=== PATIENT | female | born 1945 | race Caucasian/White ===

== ENCOUNTER 2023-10-27 20:43 | Emergency (ER) | payer OTHER, SELFPAY ==
[2023-10-27 20:48] VITALS: BP 160/68
[2023-10-27 21:01] LABS: % Basophils 0.5 % (0-2); % Eosinophils 0.7 % (0-6); % Immature Granulocytes 0.2 % (0-0.5); % Lymphocytes 20.8 % (20.5-51.1); % Neutrophils 62.8 % (42.2-75.2); Absolute Lymphocytes 1.2 10^3/uL (1.2-3.4); Absolute Monocytes 0.9 10^3/uL (0.1-0.6); Absolute Neutrophils 3.7 10^3/uL (1.4-6.5); Hematocrit 38.1 % (37.0-47.0); Mean Corp Hgb Conc. 34.1 g/dL (33.0-37.0); Mean Corpuscular Hgb 28.1 pg (27.0-31.0); Mean Corpuscular Volume 82.5 fL (81.0-99.0); Mean Platelet Volume 9.5 fL (7.4-10.4); Nucleated Red Blood Cells % 0 %; Platelet Count 284 10^3/uL (130-400); Red Blood Cell Count 4.62 10^6/uL (4.20-5.40); Red Cell Dist. Width 13.2 % (11.5-14.5); White Blood Cell Count 5.8 10^3/uL (4.8-10.8)
[2023-10-27 21:16] LABS: ALT (SGPT) 20 U/L (0-35); AST (SGOT) 29 U/L (14-36); Albumin 4.3 g/dl (3.5-5.0); Alkaline Phosphatase 64 U/L (38-126); Blood Urea Nitrogen 22 mg/dl (7-17); Calcium 9.3 mg/dl (8.4-10.2); Carbon Dioxide 25 mmol/L (22-30); Chloride 99 mmol/L (98-107); Glucose 126 mg/dl (70-99); Potassium 3.6 mmol/L (3.5-5.1); Sodium 137 mmol/L (135-145); Total Bilirubin 0.5 mg/dl (0.2-1.3); Total Protein 7.3 g/dl (6.3-8.2); eGFR > 60.00
[2023-10-28] MEDS: CARAFATE SUSPENSION 1 GM PO (00:44)
--- NOTE | 2023-10-28 00:47 | ED.GENMED ---
History of Present Illness
General
Chief Complaint: Abdominal Symptoms
Source: patient
Time Seen by Provider: 10/28/23 00:25
Nursing documentation reviewed up to this point in time: agreed with
Travel History
Have you had any contact with someone who has COVID-19?: No
Do you have any symptoms of coronavirus? Fever > 100 degrees, chills, cough, shortness of breath, sore throat, loss of taste or smell, muscle aches, or headache?: No
History of Present Illness
History of Present Illness:
This a pleasant 78-year-old female who presents with indigestion and nonbloody diarrhea. She states that is been happening since . She denies fever, chills, nausea or vomiting. She does state that she is able to drink. Patient reports no
chest pain or shortness of breath. Reports no other symptoms.
Past History
Past History
ED Past Medical History: HTN, Hypercholesterolemia and Other (barrets, dvt)
Social History
Tobacco: Non-smoker
Alcohol: None
Drug: None
Personal:
Living: with family
Review of Systems
Review of Systems
Allergies reviewed?: Yes
All Other Systems: ROS reviewed and negative except as documented in HPI and ROS
Constitutional: Reports no symptoms
EENT: Reports no symptoms
Respiratory: Reports no symptoms
Cardiac: Reports no symptoms
ABD/GI: Reports diarrhea and other (Reflux)
: Reports no symptoms
Musculoskeletal: Reports no symptoms
Skin: Reports no symptoms
Neurological: Reports no symptoms
Endocrine: Reports no symptoms
Hematologic/Lymphatic: Reports no symptoms
Psychiatric: Reports no symptoms
Phy Exam
Physical Exam
Physical Exam:
Physical Exam
Vital signs and allergy list reviewed and agreed with.
GENERAL: Alert , in no apparent distress
EYE: pupils equal, EOMI, anicteric
NECK: Supple, no significant adenopathy. No masses. Trachea midline
ENT: Oropharynx is clear, mmm.
CARDIAC: Regular rate and rhythm . No M/R/G
LUNGS: Clear breath sounds bilaterally, no acute respiratory distress, no wheezes/rales/rhonchi
ABDOMEN: Soft, without focal tenderness, no r/g, no cvat. Normal BSx4q
NEUROLOGICAL: Alert and oriented, no focal neuro deficits
SKIN: Warm and dry, skin intact.
MUSCULOSKELETAL: No edema, well perfused. Moves all 4 extremities
PSYCH: Normal and appropriate interaction.
Course
Orders/Labs/Results
Orders:
Orders
10/27/23 20:51
Electrocardiogram (*1) Urgent
Reason for Study: Abdominal Pain
EKG- Treatment ONCE
10/27/23 20:55
CMP [Comprehensive Metabolic Panel] Urgent
Complete Blood Count/With Diff Urgent
10/28/23 00:42
Encourage PO Hydration-Treatme ONCE
Sucralfate Suspension [Carafate Suspension] 1 gm PO NOW STA
Abnormal Lab Results
10/27/23
20:55
Absolute Monos (auto) 0.9 H 10^3/uL
(0.1-0.6)
Monocytes % 15.0 H %
(1.7-9.3)
BUN 22 H mg/dl
(7-17)
Glucose 126 H mg/dl
(70-99)
10/27/23 20:55
10/27/23 20:55
Vital Signs
Initial and Last Documented VS:
Initial Vital Signs
Temp Pulse Resp BP Pulse Ox
98.4 F 80 18 160/68 98
10/27/23 20:48 10/27/23 20:48 10/27/23 20:48 10/27/23 20:48 10/27/23 20:48
Last Documented Vital Signs
Temp Pulse Resp BP Pulse Ox
98.4 F 80 18 160/68 98
10/27/23 20:48 10/27/23 20:48 10/27/23 20:48 10/27/23 20:48 10/27/23 20:48
MDM/Problems Addressed
Differential Diagnosis Includes:
78-year-old female with diarrhea and reflux. She has taken Maalox and Pepto-Bismol with great relief. She is able to tolerate liquids.
MDM/Problems Addressed:
Differential includes reflux, viral syndrome, enteritis
Chronic conditions affecting care:
Hypertension, hyperlipidemia, GERD, DVT
Chronic conditions affecting care: HTN
*Pulse Oximetry
Patient hypoxic: no
*EKG
Interpreted by ED Provider?: Yes
EKG Intrepretation Date: 10/28/23
Interpretation: normal
Comparison EKG: changes noted (PACs are now present)
Heart Rate: 69
Rate: normal
Rhythm: sinus and PAC's
[place]: normal axis
Interval: normal interval
QRS Pattern: normal QRS
Ischemia: no ischemia
*Critical Care Note
Total Time (30-74mins, 75-104mins- exclusive of procedures): Not Applicable
Patient Management
Social determinants of health affecting care: Living situation (Lives with ) and Strong social support
Update Note
Update Note:
10/28/2023 0051 AM: Patient refused further IV or blood stick for troponin and IV hydration. She does not feel that this is her heart and does not want any more testing. She is drinking liquids satisfactorily in the ER. She denies any chest pain.
However would prefer to have cardiac enzymes, patient is okay with being discharged without further testing.
ED Attending Note
-
Portions of this chart may have been created with voice recognition software.� Occasional wrong word or��sound alike� substitutions may have occurred due to the inherent limitations of voice recognition software.
Discharge Plan
Departure
Patient Disposition: Home (Routine Discharge)
Date of Disposition: 10/28/23
Time of Disposition: 00:53
Patient with high blood pressure during this ER visit?: Yes
Condition: Good
Discharge Problem:
Diarrhea, Gastroesophageal reflux disease
Instructions: Diarrhea in adolescents and adults, Clear Liquid Diet
Prescriptions:
New
loperamide [Imodium A-D] 2 mg capsule
2 mg PO Q6H PRN (Reason: loose stool) Qty: 10 0RF
No Action
pantoprazole 40 MG tablet,delayed release (DR/EC)
40 mg PO DAILY
lisinopril [Prinivil] 10 MG tablet
10 mg PO DAILY
rosuvastatin 5 MG tablet
5 mg PO Daily
apixaban [Eliquis DVT-PE Treat 30D Start] 5 MG tablets,dose pack
5 - 10 mg PO DIRECTED Qty: 1 0RF
Referrals:
[facility] [Outside]
[facility] [Outside]
UNKNOWN - PT DOES,NOT KNOW [Family Provider] -
Activity Restrictions/Additional Instructions:
It was a pleasure meeting you and taking part in your care. We hope for your continued healing and wellness.
Please read discharge instructions in their entirety. However, they are for general education and may not describe your exact diagnosis at discharge. Information on your ER visit and medical conditions were discussed with you along with appropriate
follow up information...
If indicated, please take your medications as instructed and indicated on discharge paperwork.
Please schedule a follow up appointment as directed. Call to schedule an appointment
Please return to the emergency department with ANY change in, persisting, or worsening of symptoms. If any of your symptoms do not improve, or persist, or become more severe within 6-12 hours, please return to the emergency department for further
care.
Please return to the emergency department if you develop a headache, neck pain/stiffness, fever greater than 100.4F, chest pain, shortness of breath, persistent nausea, vomiting, slurred speech, difficulty walking, numbness/tingling, weakness, signs
of infection or any other symptoms that are worrisome to you.
If you have any questions or concerns please do not hesitate to call the Hospital at or E-mail me directly at [email or web address]
Interventions
Interventions:
*Risk Screen - Suicide Last Done: 10/27/23 20:48
*General Assessment Last Done: 10/28/23 00:46
*Neglect/Abuse Screening Last Done: 10/27/23 20:48
*ED COVID-19 Vaccine History Last Done: 10/28/23 00:46
*Nursing Disposition Last Done: 10/28/23 01:04
CY-Fhgmzu-Ygyrsruurx Assessment Last Done: 10/28/23 00:46
Discharge Date and Time
Discharge Date/Time: 10/28/23 01:05
== END 2023-10-28 01:05 | disposition home or self-care (01) ==
LOC: EMR 20:43
PROVIDERS: Emergency Medicine; EMERGENCY PHYSICIAN Student in an Organized Health Care Education/Training Program
DX: K21.9 Gastro-esophageal reflux disease without esophagitis (principal); R19.7 Diarrhea, unspecified; I10 Essential (primary) hypertension; E78.00 Pure hypercholesterolemia, unspecified; K22.70 Barrett's esophagus without dysplasia; Z86.718 Personal history of other venous thrombosis and embolism; Z85.820 Personal history of malignant melanoma of skin; Z88.1 Allergy status to other antibiotic agents
CPT/HCPCS: 99283; 80053; 85025; 93005

== ENCOUNTER → 2023-11-27 15:20 | Outpatient (REF) | payer OTHER, SELFPAY | LOC: RAD 15:20 | PROVIDERS: ATTENDING PHYSICIAN Student in an Organized Health Care Education/Training Program | DX: R19.7 Diarrhea, unspecified (principal); Z09 Encounter for follow-up examination after completed treatment for conditions other than malignant neoplasm; R10.31 Right lower quadrant pain; R73.9 Hyperglycemia, unspecified | CPT/HCPCS: 74177; Q9967 ==

== ENCOUNTER 2024-01-15 08:49 | Emergency (ER) | payer OTHER, SELFPAY ==
[2024-01-15 08:59] VITALS: BP 156/98
[2024-01-15] MEDS: MOTRIN 600 MG PO (12:28)
[2024-01-15] MEDS: CLEOCIN 450 MG PO (12:28)
[2024-01-15 12:29] LABS: % Basophils 0.8 % (0-2); % Eosinophils 0.7 % (0-6); % Immature Granulocytes 0.4 % (0-0.5); % Lymphocytes 19.1 % (20.5-51.1); % Monocytes 9.1 % (1.7-9.3); % Neutrophils 69.9 % (42.2-75.2); Absolute Basophils 0.1 10^3/uL (0-0.2); Absolute Eosinophils 0.1 10^3/uL (0-0.7); Absolute Lymphocytes 1.4 10^3/uL (1.2-3.4); Absolute Monocytes 0.7 10^3/uL (0.1-0.6); Absolute Neutrophils 5.2 10^3/uL (1.4-6.5); Hematocrit 35.7 % (37.0-47.0); Hemoglobin 11.6 g/dL (12.0-16.0); Mean Corp Hgb Conc. 32.5 g/dL (33.0-37.0); Mean Corpuscular Hgb 28.2 pg (27.0-31.0); Mean Corpuscular Volume 86.9 fL (81.0-99.0); Mean Platelet Volume 9.7 fL (7.4-10.4); Nucleated Red Blood Cells % 0 %; Platelet Count 249 10^3/uL (130-400); Red Blood Cell Count 4.11 10^6/uL (4.20-5.40); Red Cell Dist. Width 13.4 % (11.5-14.5); White Blood Cell Count 7.4 10^3/uL (4.8-10.8)
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
[2024-01-15 12:51] LABS: Lactic Acid 1.3 mmol/L (0.7-2.0)
[2024-01-15 12:53] LABS: ALT (SGPT) 17 U/L (0-35); AST (SGOT) 22 U/L (14-36); Albumin 4.2 g/dl (3.5-5.0); Alkaline Phosphatase 73 U/L (38-126); Blood Urea Nitrogen 17 mg/dl (7-17); Calcium 9.7 mg/dl (8.4-10.2); Carbon Dioxide 30 mmol/L (22-30); Chloride 102 mmol/L (98-107); Glucose 137 mg/dl (70-99); Potassium 4.3 mmol/L (3.5-5.1); Sodium 140 mmol/L (135-145); Total Bilirubin 0.5 mg/dl (0.2-1.3); Total Protein 7.4 g/dl (6.3-8.2); eGFR > 60.00
== END 2024-01-15 16:04 | disposition home or self-care (01) ==
LOC: EMR 08:49
PROVIDERS: Emergency Medicine; Physician Assistant; EMERGENCY PHYSICIAN Emergency Medicine; FAMILY PHYSICIAN Student in an Organized Health Care Education/Training Program
DX: I82.462 Acute embolism and thrombosis of left calf muscular vein (principal); L03.116 Cellulitis of left lower limb; S81.832A Puncture wound without foreign body, left lower leg, initial encounter; W27.1XXA Contact with garden tool, initial encounter; Y93.H2 Activity, gardening and landscaping; I10 Essential (primary) hypertension; E78.00 Pure hypercholesterolemia, unspecified; K22.70 Barrett's esophagus without dysplasia; Z85.828 Personal history of other malignant neoplasm of skin; Z86.718 Personal history of other venous thrombosis and embolism; Z88.1 Allergy status to other antibiotic agents; Z88.8 Allergy status to other drugs, medicaments and biological substances
CPT/HCPCS: 99284; 73610; 80053; 83605; 85025; 87040; 93971

== ENCOUNTER → 2024-01-22 10:49 | Outpatient (REF) | payer OTHER, SELFPAY | LOC: RAD 10:49 | PROVIDERS: ATTENDING PHYSICIAN Student in an Organized Health Care Education/Training Program | DX: I82.452 Acute embolism and thrombosis of left peroneal vein (principal) | CPT/HCPCS: 93971 ==

== ENCOUNTER 2024-01-22 12:08 | Emergency (ER) | payer OTHER, SELFPAY ==
[2024-01-22 12:10] VITALS: BP 163/79
--- NOTE | 2024-01-22 13:18 | ED.GENMED ---
History of Present Illness
General
Chief Complaint: Swelling
Time Seen by Provider: 01/22/24 13:04
Travel History
Have you had any contact with someone who has COVID-19?: No
Do you have any symptoms of coronavirus? Fever > 100 degrees, chills, cough, shortness of breath, sore throat, loss of taste or smell, muscle aches, or headache?: No
History of Present Illness
History of Present Illness:
78-year-old female presents to the emergency department for evaluation of a left lower extremity DVT. Seen this emergency department 1 week ago for left lower extremity cellulitis at which time a venous duplex of the left leg revealed a
nonocclusive thrombus in the left peroneal vein. After a lengthy discussion patient opted against anticoagulation but was ordered to obtain a repeat outpatient Doppler ultrasound within 1 to 2 weeks. This repeat ultrasound was today which showed
propagation of the clot to the left popliteal vein. She reports leg swelling is worsened. Has a history of a DVT many years ago however was not anticoagulated at that time
Past History
Past History
ED Past Medical History: HTN, Hypercholesterolemia and Other (barrets, dvt)
Social History
Tobacco: Non-smoker
Alcohol: None
Drug: None
Personal:
Living: with family
Review of Systems
Review of Systems
Allergies reviewed?: Yes
All Other Systems: ROS reviewed and negative except as documented in HPI and ROS
Phy Exam
Physical Exam
Physical Exam:
GEN: Well appearing, NAD, WDWN
HEENT: Oral mucosa moist, no scleral icterus
Cardiac: Regular rate
Lung: No respiratory distress, no tachypnea
MSK:Diffuse edema of the left lower extremity. There is mild erythema to the inferior anterior aspect centered around a superficial abrasion
Skin: Good color, no pallor or jaundice, no rashes
Neuro: AO x3, moves all extremities freely
Psych: Calm, cooperative
Scores
Heart Failure Risk
Heart Failure Risk Score: Not Applicable
Course
Vital Signs
Initial and Last Documented VS:
Initial Vital Signs
Temp Pulse Resp BP Pulse Ox
97.9 F 66 20 163/79 99
01/22/24 12:10 01/22/24 12:10 01/22/24 12:10 01/22/24 12:10 01/22/24 12:10
Last Documented Vital Signs
Temp Pulse Resp BP Pulse Ox
97.9 F 66 20 163/79 98
01/22/24 12:10 01/22/24 12:10 01/22/24 12:10 01/22/24 12:10 01/22/24 13:22
MDM/Problems Addressed
MDM/Problems Addressed:
Given propagation of the clot the patient will be started on anticoagulants. Mukesh roe provided, lengthy discussion regarding potential side effects and risks of taking anticoagulants.
*Critical Care Note
Total Time (30-74mins, 75-104mins- exclusive of procedures): Not Applicable
ED Attending Note
-
Portions of this chart may have been created with voice recognition software.� Occasional wrong word or��sound alike� substitutions may have occurred due to the inherent limitations of voice recognition software.
Discharge Plan
Departure
Patient Disposition: Home (Routine Discharge)
Date of Disposition: 01/22/24
Time of Disposition: 13:18
Patient with high blood pressure during this ER visit?: No
Discharge Problem:
Acute deep vein thrombosis (DVT) of left lower extremity
Instructions: Deep vein thrombosis (blood clot in the leg), Taking oral medicines for blood clots
Prescriptions:
New
Eliquis 5 mg tablet
5 mg PO BID Qty: 74 0RF
Rx Instructions:
10mg PO bid x 7d, then 5mg PO bid
No Action
pantoprazole 40 MG tablet,delayed release (DR/EC)
40 mg PO DAILY
lisinopril [Prinivil] 10 MG tablet
10 mg PO DAILY
rosuvastatin 5 MG tablet
5 mg PO Daily
Eliquis DVT-PE Treat 30D Start 5 MG tablets,dose pack
5 - 10 mg PO DIRECTED Qty: 1 0RF
loperamide [Imodium A-D] 2 mg capsule
2 mg PO Q6H PRN (Reason: loose stool) Qty: 10 0RF
clindamycin HCl 150 mg capsule
450 mg PO TID 7 Days Qty: 63 0RF
Referrals:
Jenna Antunez PA-C [Family Provider] -
Activity Restrictions/Additional Instructions:
Follow up with your primary care physician in 2-4 weeks. You will need further refills of your blood thinners as most cases require at least 3-6 months of blood thinner use
Interventions
Interventions:
*Risk Screen - Suicide Last Done: 01/22/24 12:10
*General Assessment Last Done: 01/22/24 12:10
*Neglect/Abuse Screening Last Done: 01/22/24 12:10
ED- Fall Risk Assessment Last Done: 01/22/24 13:22
*ED COVID-19 Vaccine History Last Done: 01/22/24 13:22
*Nursing Disposition Last Done: 01/22/24 13:26
ED- Cardiac Assessment Last Done: 01/22/24 13:22
ED- Pulmonary Assessment Last Done: 01/22/24 13:22
ED-Skin Assessment Last Done: 01/22/24 13:22
Discharge Date and Time
Print Language: [place]
[2024-01-22 13:22] VITALS: BMI 29.9
== END 2024-01-22 13:27 | disposition home or self-care (01) ==
LOC: EMR 12:08
PROVIDERS: EMERGENCY PHYSICIAN Emergency Medicine; FAMILY PHYSICIAN Student in an Organized Health Care Education/Training Program
DX: I82.402 Acute embolism and thrombosis of unspecified deep veins of left lower extremity (principal); I10 Essential (primary) hypertension; E78.00 Pure hypercholesterolemia, unspecified; K22.70 Barrett's esophagus without dysplasia
CPT/HCPCS: 99282

== ENCOUNTER → 2024-03-10 14:22 | Outpatient (REF) | payer OTHER, SELFPAY | LOC: RAD 14:22 | PROVIDERS: ATTENDING PHYSICIAN Student in an Organized Health Care Education/Training Program | DX: I82.452 Acute embolism and thrombosis of left peroneal vein (principal); M79.605 Pain in left leg; M79.89 Other specified soft tissue disorders | CPT/HCPCS: 93971 ==

== ENCOUNTER → 2024-04-21 10:49 | Outpatient (REF) | payer OTHER, SELFPAY | LOC: RAD 10:49 | PROVIDERS: ATTENDING PHYSICIAN Internal Medicine Hematology & Oncology; FAMILY PHYSICIAN Internal Medicine | DX: I82.4Z2 Acute embolism and thrombosis of unspecified deep veins of left distal lower extremity (principal) | CPT/HCPCS: 93971 ==

== ENCOUNTER → 2024-07-02 13:18 | Outpatient (REF) | payer OTHER, SELFPAY | LOC: RAD 13:18 | PROVIDERS: ATTENDING PHYSICIAN Internal Medicine Hematology & Oncology; FAMILY PHYSICIAN Internal Medicine | DX: I82.4Z2 Acute embolism and thrombosis of unspecified deep veins of left distal lower extremity (principal) | CPT/HCPCS: 93971 ==

== ENCOUNTER → 2024-07-21 08:35 | Outpatient (REF) | payer OTHER, SELFPAY | LOC: WDC 08:35 | PROVIDERS: ATTENDING PHYSICIAN Hospitalist; FAMILY PHYSICIAN Internal Medicine | DX: Z12.31 Encounter for screening mammogram for malignant neoplasm of breast (principal) | CPT/HCPCS: 77063; 77067 ==

== ENCOUNTER → 2024-08-26 14:38 | Outpatient (REF) | payer OTHER, SELFPAY | LOC: RAD 14:38 | PROVIDERS: ATTENDING PHYSICIAN Internal Medicine Hematology & Oncology; FAMILY PHYSICIAN Internal Medicine | DX: I82.4Z2 Acute embolism and thrombosis of unspecified deep veins of left distal lower extremity (principal) | CPT/HCPCS: 93971 ==

== ENCOUNTER 2024-09-28 06:22 | Day surgery (SDC) | payer OTHER, SELFPAY | END 2024-09-28 09:33 | disposition home or self-care (01) | LOC: GI 06:22 | PROVIDERS: ATTENDING PHYSICIAN Internal Medicine Gastroenterology | DX: K29.50 Unspecified chronic gastritis without bleeding (principal); K44.9 Diaphragmatic hernia without obstruction or gangrene; K31.7 Polyp of stomach and duodenum; K22.89 Other specified disease of esophagus; K31.89 Other diseases of stomach and duodenum; R12 Heartburn; Z87.19 Personal history of other diseases of the digestive system | CPT/HCPCS: 43239; 88305; 88342 ==